=== PATIENT | male | born 1990 | race Caucasian/White ===

== ENCOUNTER 2019-02-03 15:56 | Emergency (ER) | payer MEDICAID ==
[~2019-02-03] VITALS: Ht 180.3 cm; Wt 72.7 kg
[2019-02-03 16:13] VITALS: BP 128/82
[2019-02-03] MEDS ORDERED: MUPI22OI30 TOP (16:39)
[2019-02-03] MEDS ORDERED: CEPH-572 PO (16:39)
[2019-02-03] MEDS ORDERED: DOXY100C2 PO (16:39)
== END 2019-02-03 16:56 | disposition home or self-care (01) ==
LOC: ER 15:56
DX: L03.211 Cellulitis of face (principal); L03.114 Cellulitis of left upper limb; L03.113 Cellulitis of right upper limb; L02.01 Cutaneous abscess of face; L02.414 Cutaneous abscess of left upper limb; L02.415 Cutaneous abscess of right lower limb; J45.909 Unspecified asthma, uncomplicated; B95.4 Other streptococcus as the cause of diseases classified elsewhere; F15.90 Other stimulant use, unspecified, uncomplicated; F11.90 Opioid use, unspecified, uncomplicated; Z86.14 Personal history of Methicillin resistant Staphylococcus aureus infection; Z56.0 Unemployment, unspecified; Z79.899 Other long term (current) drug therapy
CPT/HCPCS: 99283

== ENCOUNTER 2019-04-15 01:45 | Emergency (ER) | payer MEDICAID ==
[~2019-04-15] VITALS: Ht 180.3 cm; Wt 64.4 kg
[2019-04-15 01:48] VITALS: BP 148/102
[2019-04-15] MEDS ORDERED: sulfamethoxazole/trimethoprim DS (800/160mg) tablet PO ONE (02:15)
[2019-04-15] MEDS ORDERED: SULF1TAB49 PO (02:16)
== END 2019-04-15 02:28 | disposition home or self-care (01) ==
LOC: ER 01:45
DX: L02.212 Cutaneous abscess of back [any part, except buttock and flank] (principal); J45.909 Unspecified asthma, uncomplicated; F15.90 Other stimulant use, unspecified, uncomplicated; F11.90 Opioid use, unspecified, uncomplicated; Z59.0 Homelessness; Z79.2 Long term (current) use of antibiotics; Z86.14 Personal history of Methicillin resistant Staphylococcus aureus infection
CPT/HCPCS: 99283

== ENCOUNTER 2021-09-13 02:11 | Emergency (ER) | payer MEDICAID ==
[~2021-09-13] VITALS: Ht 180.3 cm; Wt 68.2 kg
[2021-09-13] MEDS ORDERED: LIDOcaine 1% W/epiNEPHrine 1:200,000 10ml vial IJ ONE (02:30)
[2021-09-13] MEDS ORDERED: LIDOCAINE 2% w/EPI 1:100:000 30mL injection MDV**cath lab 1 only INJ ONE (02:35)
[2021-09-13] MEDS ORDERED: cephalexin 250mg capsule PO ONE (02:35)
[2021-09-13] MEDS ORDERED: CEPH-585 PO (03:14)
[2021-09-13 03:18] VITALS: BP 100/66
== END 2021-09-13 03:30 | disposition home or self-care (01) ==
LOC: ER 02:12
DX: S68.620A Partial traumatic transphalangeal amputation of right index finger, initial encounter (principal); S62.630B Displaced fracture of distal phalanx of right index finger, initial encounter for open fracture; S61.210A Laceration without foreign body of right index finger without damage to nail, initial encounter; J45.909 Unspecified asthma, uncomplicated; Z86.14 Personal history of Methicillin resistant Staphylococcus aureus infection; F15.90 Other stimulant use, unspecified, uncomplicated; F11.90 Opioid use, unspecified, uncomplicated; Z56.0 Unemployment, unspecified; Z59.00 Homelessness unspecified; Z79.2 Long term (current) use of antibiotics; W45.8XXA Other foreign body or object entering through skin, initial encounter; Y93.89 Activity, other specified; Y92.89 Other specified places as the place of occurrence of the external cause; Y99.8 Other external cause status
CPT/HCPCS: 12001; 73140; 99283; J3490

== ENCOUNTER 2021-09-19 16:42 | Emergency (ER) | payer MEDICAID ==
[~2021-09-19] VITALS: Ht 180.3 cm; Wt 68.2 kg
[~2021-09-19 16:42] MED LIST: CEPH-585 PO
[2021-09-19 17:08] VITALS: BP 142/94
[2021-09-19] MEDS ORDERED: bacitracin 15gm ointment TP ONE (18:35)
== END 2021-09-19 19:01 | disposition home or self-care (01) ==
LOC: ER 16:43
DX: S62.640D Nondisplaced fracture of proximal phalanx of right index finger, subsequent encounter for fracture with routine healing (principal); J45.909 Unspecified asthma, uncomplicated; F15.90 Other stimulant use, unspecified, uncomplicated; F11.90 Opioid use, unspecified, uncomplicated; Z86.14 Personal history of Methicillin resistant Staphylococcus aureus infection; Z56.0 Unemployment, unspecified; Z59.00 Homelessness unspecified; Z79.2 Long term (current) use of antibiotics; W45.8XXD Other foreign body or object entering through skin, subsequent encounter
CPT/HCPCS: 99282

== ENCOUNTER 2021-10-03 20:17 | Emergency (ER) | payer MEDICAID ==
[~2021-10-03] VITALS: Ht 180.3 cm; Wt 68.2 kg
[2021-10-03 20:21] VITALS: BP 145/102
== END 2021-10-03 22:04 | disposition home or self-care (01) ==
LOC: ER 20:18
DX: S61.210D Laceration without foreign body of right index finger without damage to nail, subsequent encounter (principal); W45.8XXD Other foreign body or object entering through skin, subsequent encounter; J45.909 Unspecified asthma, uncomplicated; Z56.0 Unemployment, unspecified
CPT/HCPCS: 99281

== ENCOUNTER 2022-10-04 19:57 | Emergency (ER) | payer MEDICAID ==
[2022-10-04 20:40] VITALS: BP 139/96
[2022-10-04] MEDS ORDERED: IBUP-1986 PO (20:47)
[2022-10-04] MEDS ORDERED: AMOX-117 PO (20:47)
[2022-10-04] MEDS ORDERED: amox tr/potassium clavulanate 875/125mg TAB PO ONE (20:50)
[2022-10-04] MEDS ORDERED: ketorolac trometh inj. 60 MG/2 ML VIAL IM ONE (20:50)
== END 2022-10-04 21:17 | disposition home or self-care (01) ==
LOC: ER 19:58
DX: K04.7 Periapical abscess without sinus (principal); J45.909 Unspecified asthma, uncomplicated; F15.90 Other stimulant use, unspecified, uncomplicated; F11.90 Opioid use, unspecified, uncomplicated; Z59.00 Homelessness unspecified; Z56.0 Unemployment, unspecified; Z86.14 Personal history of Methicillin resistant Staphylococcus aureus infection; Z79.899 Other long term (current) drug therapy
CPT/HCPCS: 96372; 99283; J1885

== ENCOUNTER 2023-04-22 17:18 | Emergency (ER) | payer MEDICAID ==
[~2023-04-22] VITALS: Ht 180.3 cm; Wt 65.2 kg
[~2023-04-22 17:18] MED LIST changes: -CEPH-585 PO; +IBUP-1986 PO
[2023-04-22] MEDS ORDERED: ketorolac trometh inj. 60 MG/2 ML VIAL IM ONE (19:40)
[2023-04-22] MEDS ORDERED: NAPR-56 PO (19:43)
[2023-04-22] MEDS ORDERED: DOXY150T8 PO (19:43)
[2023-04-22 20:16] VITALS: BP 104/71; PULSE 70; RESP 18; TEMP 98.6; O2SAT 98
== END 2023-04-22 20:21 | disposition home or self-care (01) ==
LOC: ER 17:19
DX: K04.7 Periapical abscess without sinus (principal)
CPT/HCPCS: 96372; 99283; J1885

== ENCOUNTER 2023-10-07 19:23 | Emergency (ER) | payer MEDICAID ==
[~2023-10-07] VITALS: Ht 180.3 cm; Wt 70.0 kg
[2023-10-07 19:28] VITALS: BP 145/72; PULSE 100; RESP 18; TEMP 98.8; O2SAT 100
[2023-10-07 20:27] LABS: BASOPHILS % (AUTO) 0.3 % (0-1); EOSINOPHILS % (AUTO) 0.4 % (0-6); HEMATOCRIT 38.8 % (42.0-52.0); HEMOGLOBIN 13.3 g/dl (14.0-17.9); LYMPHOCYTES # (AUTO) 0.7 X10'3 (1.1-4.8); LYMPHOCYTES % (AUTO) 5.7 % (21-51); MEAN CORPUSCULAR HEMOGLOBIN 30.2 PG (27.0-31.0); MEAN CORPUSCULAR HGB CONC 34.2 g/dL (33.0-36.5); MEAN CORPUSCULAR VOLUME 88.1 FL (78-98); MEAN PLATELET VOLUME 7.5 FL (7.4-10.4); MONOCYTES # (AUTO) 0.8 X10'3 (0-0.9); NEUTROPHILS # (AUTO) 11.3 X10'3 (1.8-7.7); NEUTROPHILS % (AUTO) 87.6 % (42-75); PLATELET COUNT 357 X10'3 (140-440)
[2023-10-07 20:50] LABS: ALANINE AMINOTRANSFERASE 26 U/L (12-78); ALBUMIN 3.1 G/DL (3.4-5.0); ALBUMIN/GLOBULIN RATIO 0.7 (1.1-1.5); ALKALINE PHOSPHATASE 81 IU/L (46-116); ANION GAP 9 (8-16); ASPARTATE AMINO TRANSFERASE 25 U/L (10-37); BILIRUBIN,TOTAL 0.6 MG/DL (0.1-1.0); BLOOD UREA NITROGEN 10 MG/DL (7-18); BUN/CREATININE RATIO 14.3 (10.0-20.0); CALCIUM 8.4 MG/DL (8.5-10.1); CHLORIDE 104 MMOL/L (99-107); GLUCOSE 116 MG/DL (70-104); POTASSIUM 3.9 MMOL/L (3.5-5.1); SODIUM 139 MMOL/L (135-145); TOTAL PROTEIN 7.4 G/DL (6.4-8.2); eCRCL 150 ML/MIN; eGFR > 90 ML/MIN
[2023-10-07] MEDS ORDERED: CEPH500C2 PO (20:56)
[2023-10-07] MEDS ORDERED: SULF1TAB49 PO (20:56)
[2023-10-07] MEDS: cephalexin 500mg capsule PO ONE (21:06)
[2023-10-07] MEDS: sulfamethoxazole/trimethoprim DS (800/160mg) tablet PO ONE (21:06)
== END 2023-10-07 21:18 | disposition home or self-care (01) ==
LOC: ER 19:24
DX: L03.115 Cellulitis of right lower limb (principal); J45.909 Unspecified asthma, uncomplicated; F15.90 Other stimulant use, unspecified, uncomplicated; F11.90 Opioid use, unspecified, uncomplicated; Z59.00 Homelessness unspecified; Z56.0 Unemployment, unspecified; Z79.899 Other long term (current) drug therapy; Z79.2 Long term (current) use of antibiotics
CPT/HCPCS: 36415; 80053; 83605; 84145; 85025; 99283; J7030; A6258; A6449

== ENCOUNTER 2024-04-01 08:11 | Emergency (ER) | payer MEDICAID ==
[~2024-04-01] VITALS: Ht 180.3 cm; Wt 67.8 kg
[~2024-04-01 08:11] MED LIST changes: +CEPH500C2 PO; +SULF1TAB49 PO
[2024-04-01 08:14] VITALS: BP 150/88; PULSE 65; RESP 18; TEMP 97.8; O2SAT 100
[2024-04-01] MEDS ORDERED: CEPH-585 PO (08:40)
[2024-04-01] MEDS ORDERED: SULF1TAB45 PO (08:40)
== END 2024-04-01 08:46 | disposition home or self-care (01) ==
LOC: ER 08:12
DX: J34.0 Abscess, furuncle and carbuncle of nose (principal); B95.62 Methicillin resistant Staphylococcus aureus infection as the cause of diseases classified elsewhere; J45.909 Unspecified asthma, uncomplicated; F17.210 Nicotine dependence, cigarettes, uncomplicated; Z79.2 Long term (current) use of antibiotics; Z79.1 Long term (current) use of non-steroidal anti-inflammatories (NSAID); Z59.00 Homelessness unspecified; Z86.14 Personal history of Methicillin resistant Staphylococcus aureus infection
CPT/HCPCS: 99283

== ENCOUNTER 2024-06-20 19:52 | Emergency (ER) | payer MEDICAID ==
[~2024-06-20] VITALS: Ht 180.3 cm; Wt 66.8 kg
[~2024-06-20 19:52] MED LIST changes: +CEPH-585 PO
[2024-06-20 20:45] VITALS: BP 126/63; PULSE 96; RESP 16; TEMP 98.6; O2SAT 96
[2024-06-20] MEDS ORDERED: CEPH-585 PO (21:28)
[2024-06-20] MEDS ORDERED: SULF1TAB49 PO (21:28)
[2024-06-20] MEDS: CefTRIAXone 1000mg IM Kit (w/lidocaine diluent) IM ONE (21:50)
== END 2024-06-20 21:59 | disposition home or self-care (01) ==
LOC: ER 19:53
DX: H60.12 Cellulitis of left external ear (principal); J45.909 Unspecified asthma, uncomplicated; F15.90 Other stimulant use, unspecified, uncomplicated; Z79.2 Long term (current) use of antibiotics; Z79.1 Long term (current) use of non-steroidal anti-inflammatories (NSAID)
CPT/HCPCS: 96372; 99283; J0696

== ENCOUNTER 2024-07-07 05:07 | Emergency (ER) | payer MEDICAID ==
[~2024-07-07] VITALS: Ht 180.3 cm; Wt 66.4 kg
[2024-07-07 05:09] VITALS: BP 137/84; PULSE 88; RESP 16; TEMP 98; O2SAT 98
[2024-07-07] MEDS: LIDOcaine 1% W/epiNEPHrine 1:100,000 20ml vial SQ ONE (05:34)
[2024-07-07] MEDS ORDERED: CEPH-585 PO (05:45)
== END 2024-07-07 06:06 | disposition home or self-care (01) ==
LOC: ER 05:07
DX: H61 Other disorders of external ear (principal); J45.909 Unspecified asthma, uncomplicated; F12.90 Cannabis use, unspecified, uncomplicated; F15.90 Other stimulant use, unspecified, uncomplicated
CPT/HCPCS: 10160; 99284; A6449